=== PATIENT | male | born 1940 | race Caucasian/White ===

== ENCOUNTER 2016-12-22 09:15 | Day surgery (SDC) | payer MEDICARE ==
[~2016-12-22] VITALS: Ht 167.6 cm; Wt 70.3 kg
[~2016-12-22 09:15] MED LIST: ALBU18HF INH; ALBU90AE IH; ASPI-973 PO; ATRINH INH; LOSA1TAB69 PO; Sodium Chloride LOK Flush 10 mL Syringe IV PRN; fentaNYL-PF 50 mCg/mL 2 mL Inj IVPUSH PRN
[2016-12-22 10:18] VITALS: BP 116/76; PULSE 76; RESP 16; O2SAT 97
[2016-12-22] MEDS: 0.9% Sodium Chloride 1,000 ML IV SCH ×3 (10:32→11:29)
[2016-12-22 11:40] VITALS: BP 94/59; PULSE 65; RESP 16; O2SAT 94
[2016-12-22 11:48] VITALS: BP 96/56; PULSE 69; RESP 16; O2SAT 90
[2016-12-22 11:54] VITALS: BP 106/62; PULSE 60; RESP 16; O2SAT 95
--- NOTE | 2016-12-22 22:47 | ENDO ---
[address] [address] ENDOSCOPY PROCEDURE PATIENT: FAY NARAYANAN : 1940 MR#: [id number] ADMIT: 12/22/2016 JOB ID: [id number] DATE OF PROCEDURE: 12/22/2016 PRIMARY PROVIDER: Wero Resendiz MD. PROCEDURE: 1. Esophagogastroduodenoscopy with biopsy. 2. Colonoscopy with hot snare polypectomy and cold forceps polypectomy. INDICATIONS: A 76-year-old male with a history of intermittent dyspepsia, currently he is on no medications and really having no symptoms. He additionally reports for colon cancer screening. EQUIPMENT: 1. GIF-H190. 2. PCF-H180AL. SEDATION: 1. Versed 4 mg. 2. Fentanyl 100 mcg. COMPLICATIONS: None identified. BOWEL PREPARATION: Fair, adequate exam. PROCEDURE INFORMATION: After the risks and benefits were explained, written and informed consent was obtained. Sedation was achieved. Scope introduced into the mouth and advanced to the second portion of the duodenum. The scope was slowly withdrawn. Retroflexed views were accomplished in the stomach. The stomach was decompressed. The scope removed from the patient who tolerated the procedure well. The patient was then turned around. Digital rectal examination accomplished. Moderate internal hemorrhoids noted. The scope introduced into the rectum and advanced to the cecum as identified by the appendiceal orifice and ileocecal valve. The scope was slowly withdrawn to carefully examine the mucosa for any defects or lesions. Retroflexed views were avoided in the rectum. Multiple direct views were made through the dentate line for exclusion of pathology. The colon was decompressed. The scope removed from the patient who tolerated the procedure well. FINDINGS: 1. Duodenum: No pathology identified from the bulb through to the second portion. 2. Stomach: Mild gastropathy seen throughout. No ulcers. No mass lesions. No outlet obstruction. Retroflexed views of the LES were unremarkable. 3. Esophagus: The squamocolumnar junction correlated with the top of the gastric folds. The GE junction was at 43 cm from the incisors. No acute erosive changes. No strictures. No mass lesions. Subtle sliding hiatal hernia. 4. Colon: There were two polyps removed by way of hot snare, a third by way of cold forceps. These were submitted as "colon polyps." One of these came from somewhere in the transverse, two of them came from the cecum. No other significant pathology was appreciated throughout apart from some mild diverticulosis in the left colon. ENDOSCOPIC DIAGNOSES: 1. Mild gastropathy. 2. Subtle sliding hiatal hernia. 3. Multiple colon polyps. 4. Diverticulosis. 5. Moderately engorged hemorrhoids. RECOMMENDATIONS: 1. Await histopathology. 2. Repeat colonoscopy in three years. 3. Surveillance esophagogastroduodenoscopy is not anticipated.
--- NOTE | 2016-12-23 15:14 | PATH ---
SURGICAL PATHOLOGY Attending Physician:Julio César Lr CASE STATUS: Signed Out PATIENT NAME: FAY NARAYANAN PID: [id number] : 1940 DATE COLLECTED:12/22/2016 21:58 SPECIMEN: 1: Gastric, Biopsy 2: Colon, Biopsy CLINICAL HISTORY: 1). GASTRIC BIOPSY 2). COLON POLYPS X3 FINAL DIAGNOSIS: 1.GASTRIC BIOPSY: MILD CHRONIC GASTRITIS INVOLVING FUNDIC MUCOSA. Negative for Helicobacter by H&E stain. Negative for intestinal metaplasia. Negative for dysplasia and malignancy. 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 ICD10 D12.6 GROSS DESCRIPTION: The specimen is received in two formalin filled containers labeled with the patient's name. 1). Specimen a sublabeled "gastric" and consists of a 0.3 x 0.3 x 0.2 CM portion of tissue which is entirely submitted in cassette 1A. 2). The specimen is sublabeled "colon polyps" and consists of multiple portions of tissue which aggregate to 0.5 x 0.5 x 0.4 CM. The specimen is entirely submitted in cassette 2A. 12/22/2016 [facility] MICRO DESCRIPTION: See diagnosis. ICD-9 CODES: CPT CODES: 1: 41034 2: 37903 Electronically Signed Out Gabriel Blevins MD [facility] [address], [place] [address] Technical component performed at [facility], [address] [place] [address] Ave[address], [place], [address]
== END 2016-12-22 23:59 | disposition home or self-care (01) ==
LOC: END 09:15
PROVIDERS: ATTEND Internal Medicine Gastroenterology
DX: Z12.11 Encounter for screening for malignant neoplasm of colon (principal); D12.0 Benign neoplasm of cecum; D12.3 Benign neoplasm of transverse colon; K64.8 Other hemorrhoids; K57.30 Diverticulosis of large intestine without perforation or abscess without bleeding; K29.50 Unspecified chronic gastritis without bleeding; K31.9 Disease of stomach and duodenum, unspecified; K44.9 Diaphragmatic hernia without obstruction or gangrene; I10 Essential (primary) hypertension; N40.0 Benign prostatic hyperplasia without lower urinary tract symptoms; G54.0 Brachial plexus disorders; J32.9 Chronic sinusitis, unspecified; Z79.51 Long term (current) use of inhaled steroids; Z79.82 Long term (current) use of aspirin
CPT/HCPCS: 43239; 45380; 45385; 99153; G0500; J7030